=== PATIENT | female | born 1935 | race Caucasian/White ===

== ENCOUNTER 2022-04-12 04:53 | Emergency (ER) | payer MEDICARE, SELFPAY ==
[2022-04-12 04:54] VITALS: BMI 25.5
[2022-04-12 04:58] VITALS: BP 143/74; PULSE 97; RESP 21; TEMP 36.7; O2SAT 95
--- NOTE | 2022-04-12 04:58 | ECG_ITS ---
Test Date: 2022-04-12 Pat Name: Crys Thurston Department: Room: Gender: Female Licensed Massage Therapist: : 1935 Requested By: García Romero Order Number: [id number] Trice MD: Renée Kaur M.D. Measurements Intervals [place] Rate: 94 P: 115 NE: 219 QRS: 93 QRSD: 156 T: 72 QT: 403 QTc: 506 Interpretive Statements ELECTRONIC VENTRICULAR PACEMAKER ABNORMAL RHYTHM ECG No previous ECG available for comparison Electronically Signed On 04-13-2022 12:04:26 MANAGER INFORMATION by Renée Kaur M.D. [id number] f
--- NOTE | 2022-04-12 05:11 | XRR_ITS ---
PROCEDURE INFORMATION: Exam: XR Chest Exam date and time: 04/12/2022 5:27 AM Age: 86 years old Clinical indication: Pain; Cough; Chest pressure; Prior surgery; Surgery date: 6+ months; Surgery type: Pacemaker; Additional info: Cough cp TECHNIQUE: Imaging protocol: Radiologic exam of the chest. Views: 1 view. COMPARISON: No relevant prior studies available. FINDINGS: Lungs: Normal lung volumes. Minimal left lower lobe platelike atelectasis is seen. Right upper lobe and right mid to lower lung zone peripheral 1-4 mm calcified granulomas are seen. No confluent interstitial or airspace opacities. Pleural spaces: No pleural effusion. No pneumothorax. Heart/Mediastinum: Normal heart size. 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 There is a mildly tortuous thoracic aorta. Midline trachea. Bones/joints: No acute abnormalities. Mild shoulder degenerative changes are seen. Soft tissues: Multiple external densities are seen overlying the chest, limiting assessment. XR/XR chest 1V portable 10094 IMPRESSION: No confluent infiltrates in the lungs.
[2022-04-12 05:19] LABS: Basophils % 0.4 %; Eosinophils # 0.2 10^3/uL (0.0-0.8); Eosinophils % 2.7 %; Hematocrit 33.1 % (37.0-47.0); Hemoglobin 10.4 g/dL (11.5-15.3); Lymphocytes # 1.8 10^3/uL (0.8-4.8); Lymphocytes % 24.9 %; Mean Corpuscular HGB Conc 31.4 g/dL (30.0-36.0); Mean Corpuscular Hemoglobin 32.6 pg (28.0-34.0); Mean Corpuscular Volume 103.8 fl (81-99); Mean Platelet Volume 10.3 fL (7.4-10.4); Monocytes # 0.5 10^3/uL (0.2-0.9); Monocytes % 6.7 %; Neutrophils # 4.77 10^3/uL (1.8-7.7); Neutrophils % 64.9 %; Nucleated Red Blood Cells % 0 %; Platelet Count 270 10^3/cmm (130-400); Red Blood Count 3.19 10^6/uL (4.1-5.3); Red Cell Distribution Width 14.7 % (12.1-15.1); White Blood Count 7.4 10^3/uL (4.0-10.0)
[2022-04-12 05:26] LABS: INR 1.18 (0.8-1.2); Partial Thromboplastin Time 29.8 SECONDS (23.9-36.7)
[2022-04-12 05:35] LABS: Troponin(5th) Baseline 36 ng/L (0-10)
--- NOTE | 2022-04-12 05:38 | ED_ITS ---
Documented by User: García Burden, 04/12/22 05:54 HPI - Chest Pain General: Chief Complaint: Chest Pain Stated Complaint: chest pressure Time Seen by Provider: 04/12/22 04:56 Source: patient and EMS History of Present Illness: 86-year-old female presenting by air ambulance. The chief complaint for the call was chest discomfort. This discomfort had resolved by the time EMS arrived. She was given nitroglycerin anyway. She complains of a cough for several days. No fever. No increased feet swelling. No vomiting or diarrhea. She was evaluated for an elevated troponin at [facility] couple of weeks ago. It is unclear why it was chosen to come to our facility, as she has not been here prior. She is a poor historian. MD complaint: chest discomfort Pertinent past history: other Onset (ago): hour(s) Timing of current episode: episodic and now resolved Prior episodes: Yes Onset: during rest and awoke with symptoms Pain location: substernal Relieving factors: other Exacerbating factors: nothing Associated symptoms: Reports dyspnea (Mild); Deny abdominal pain, diaphoresis, fever(s), leg edema, nausea, syncope or vom iting Treatment prior to arrival: nitroglycerin and oxygen Review of Systems Const: Denies: fever(s) or diaphoresis ENMT: Denies: throat pain Card: Reports: chest pain; Denies: syncope Resp: Reports: dyspnea (Mild) and non-productive cough GI: Denies: abdominal pain, nausea or vomiting Neuro: Reports: numbness in extremities ( I feel numb all over ); Denies: headache(s) Physical Exam Const: COMMON NORMALS: no acute distress GENERAL APPEARANCE: cooperative and frail appearing; not ill appearing HENMT: COMMON NORMALS: normocephalic, atraumatic and Normal external nose present HEAD & SCALP: normocephalic and atraumatic FACE & SINUS: normal facial exam and face symmetric NOSE: Normal external nose present Eye: COMMON NORMALS: Equal, round and reactive pupils present and EOMs intact bilaterally PUPIL: Yes Equal, round and reactive pupils present Neck/C-Spine: GENERAL: Yes trachea midline Chest: CHEST: Yes Symmetrical chest wall rise Resp: COMMON NORMALS: normal respiratory effort, No retractions, No use of accessory muscles and clear to auscultation bilaterally AUSCULTATION: clear to auscultation bilaterally Cardio: COMMON NORMALS: regular rate and regular rhythm RATE: regular rate RHYTHM: regular rhythm GI: COMMON NORMALS: Normal to inspection, nondistended, normoactive bowel sounds present Extremity: COMMON NORMALS: no pedal edema Neuro: FIDELINA COMA SCALE: document GCS findings F[place] coma scale eye opening: Spontaneous [place] coma scale verbal response: Orientated [place] coma scale motor response: Obey commands F[place] coma scale total score: 15 CRANIAL NERVES: Yes CN normal except as noted SPEECH: speech normal SENSORY EXAM: Yes extremities (intact grossly) MOTOR EXAM: Normal motor muscle tone present throughout Psych: COMMON NORMALS: cooperative and speech normal SPEECH: Yes normal speech Skin: COMMON NORMALS: no rashes or lesions noted GENERAL SKIN EXAM: no rashes or lesions noted Course Vital Signs: Vital signs: Vital Signs Temperature 98.1 F 04/12/22 04:58 Pulse Rate 89 04/12/22 10:00 Respiratory Rate 16 04/12/22 10:00 Blood Pressure 143/71 04/12/22 10:00 Pulse Oximetry 93 04/12/22 10:00 Oxygen Delivery Me thod 04/12/22 10:00 MDM - Chest Pain Medical Decision Making 86-year-old with cough, chest discomfort. She has been evaluated at other hospitals evidently. She is kind of a poor historian in terms of what has happened in the past, but can relate her symptoms currently which have essentially resolved. Her CBC is not remarkable. Chest x-ray shows a tiny right-sided pleural effusion but is otherwise nonacute. Further laboratory work-up is pending. She will be checked out to Dr. Rice at shift change. Lab Data : 04/12/22 05:02 04/12/22 05:02 Radiology Impressions Chest X-Ray 04/12/22 05:11 IMPRESSION: No confluent infiltrates in the lungs. Laboratory Results WBC 7.4 10^3/uL (4.0-10.0) 04/12/22 05:02 RBC 3.19 10^6/uL (4.1-5.3) L 04/12/22 05:02 Hgb 10.4 g/dL (11.5-15.3) L 04/12/22 05:02 Hct 33.1 % (37.0-47.0) L 04/12/22 05:02 MCV 103.8 fl (81-99) H 04/12/22 05:02 MCH 32.6 pg (28.0-34.0) 04/12/22 05:02 MCHC 31.4 g/dL (30.0-36.0) 04/12/22 05:02 RDW 14.7 % (12.1-15.1) 04/12/22 05:02 Plt Count 270 10^3/cmm (130-400) 04/12/22 05:02 MPV 10.3 fL (7.4-10.4) 04/12/22 05:02 Neut % (Auto) 64.9 % 04/12/22 05:02 Lymph % (Auto) 24.9 % 04/12/22 05:02 [place] % (Auto) 6.7 % 04/12/22 05:02 Eos % (Auto) 2.7 % 04/12/22 05:02 Baso % (Auto) 0.4 % 04/12/22 05:02 Neut # (Auto) 4.77 10^3/uL (1.8-7.7) 04/12/22 05:02 Lymph # (Auto) 1.8 10^3/uL (0.8-4.8) 04/12/22 05:02 [place] # (Auto) 0.5 10^3/uL (0.2-0.9) 04/12/22 05:02 Eos # (Auto) 0.2 10^3/uL (0.0-0.8) 04/12/22 05:02 Baso # (Auto) 0.0 10^3/uL (0.0-0.1) 04/12/22 05:02 Nucleated RBC % (auto) 0 % 04/12/22 05:02 Nucleated RBCs # 0.0 /100WBC 04/12/22 05:02 PT 15.30 SECONDS (12.1-14.9) H 04/12/22 05:02 INR 1.18 (0.8-1.2) 04/12/22 05:02 APTT 29.8 SECONDS (23.9-36.7) 04/12/22 05:02 Sodium 137 mmol/L (136-145) 04/12/22 05:02 Potassium 3.6 mmol/L (3.5-5.1) 04/12/22 05:02 Chloride 103 mmol/L (98-107) 04/12/22 05:02 Carbon Dioxide 23 mmol/L (22-29) 04/12/22 05:02 Anion Gap 14.6 (5-19) 04/12/22 05:02 BUN 10 mg/dL (8-23) 04/12/22 05:02 Creatinine 0.5 mg/dL (0.5-0.9) 04/12/22 05:02 GFR Calculation Not Reportable 04/12/22 05:02 Glucose 113 mg/dL (65-115) 04/12/22 05:02 Calculated Osmolality 284 mOsm/kg (285-295) L 04/12/22 05:02 Calcium 8.2 mg/dL (8.5-10.5) L 04/12/22 05:02 Total Bilirubin 0.2 mg/dL (0.15-1.2) 04/12/22 05:02 AST 20 U/L (0-32) 04/12/22 05:02 ALT 16 U/L (0-33) 04/12/22 05:02 Alkaline Phosphatase 106 U/L (35-105) H 04/12/22 05:02 Creatine Kinase 27 U/L (26-192) 04/12/22 05:02 Troponin T Baseline 36 ng/L (0-10) H 04/12/22 05:02 Troponin T 120 Minute 37.17 ng/L (0-10) H 04/12/22 06:58 Delta Troponin T 1.17 ABS# (0-10) 04/12/22 06:58 NT-Pro-B Natriuret Pep 750 pg/mL (0-450) H 04/12/22 05:02 Total Protein 5.7 g/dL (6.6-8.7) L 04/12/22 05:02 Albumin 2.9 g/dL (3.5-5.2) L 04/12/22 05:02 Globulin 2.8 g/dL (1.3-4.6) 04/12/22 05:02 Urine Color Yellow (Yellow) 04/12/22 06:11 Urine Appearance Clear (CLEAR) 04/12/22 06:11 Urine pH 5 (5-7) 04/12/22 06:11 Ur Specific [place] 1.010 (1.005-1.030) 04/12/22 06:11 Urine Protein Neg (Negative) 04/12/22 06:11 Urine Glucose (UA) Norm (Normal) 04/12/22 06:11 Urine Ketones Negative (Negative) 04/12/22 06:11 Urine Blood 2+ (Negative) H 04/12/22 06:11 Urine Nitrate Negative (Negative) 04/12/22 06:11 Urine Bilirubin Neg (Negative) 04/12/22 06:11 Urine Urobilinogen Norm mg/dL (Negative) 04/12/22 06:11 Ur Leukocyte Esterase Negative (Negative) 04/12/22 06:11 Urine RBC None /hpf (0-2) 04/12/22 06:11 Urine WBC None /hpf (0-5) 04/12/22 06:11 Ur Squamous Epith Cells 80-100 /hpf (0-5) H 04/12/22 06:11 Amorphous Sediment Not Reportable 04/12/22 06:11 Urine Bacteria None /hpf (NONE) 04/12/22 06:11 Influenza Type A Ag negative (Negative) 04/12/22 05:18 Influenza Type B Ag negative (Negative) 04/12/22 05:18 SARS-CoV-2 Ag (Rapid) negative (Negative) 04/12/22 05:18 Discharge Plan Discharge Patient Disposition: Home Clinical Impression: Atypical chest pain Condition: Stable Prescriptions: New isosorbide mononitrate 30 mg tablet extended release 24 hr 30 mg PO DAILY Qty: 30 0RF pantoprazole 40 mg tablet,delayed release (DR/EC) 40 mg PO BID 14 Days Qty: 74 0RF Rx Instructions: Twice daily for 2 weeks then decrease to once daily. Discontinued omeprazole magnesium [Prilosec OTC] 20 mg Tablet,Delayed Release (Dr/Ec) 20 mg PO QAM No Action promethazine-DM 6.25-15 mg/5 mL Syrup 7.5 ml PO Q6H PRN (Reason: Cough) Aspir-81 81 mg Tablet,Delayed Release (Dr/Ec) 81 mg PO BEDTIME triamcinolone acetonide 0.1 % cream 1 applic TOPICAL BID Rx Instructions: to groin area iron 325 mg (65 mg iron) Tablet 325 mg PO BEDTIME nystatin 100,000 unit/gram cream 1 applic TOPICAL BID Rx Instructions: to groin area bilberry 100 mg Capsule 100 mg PO BEDTIME Lasix 20 mg Tablet 20 mg PO DAILY PRN (Reason: Edema) Vitamin D3 25 mcg (1,000 unit) Capsule 25 mcg PO BEDTIME Eliquis 2.5 mg Tablet 2.5 mg PO BID Discharge Orders: Discharge ED (Routine); Ordered 04/12/22 Ordered By: Rome Rice Discharge Diet: Usual diet Discharge Activity: Limit activity as instructed Activity Restrictions/Additional Instructions: Continue Eliquis and aspirin. Start isosorbide mononitrate once daily. Case management make arrangements for you to follow-up with cardiology as an outpatient. Sign Out Sign Out Data: Patient Sign Out occurred on 04/12/22 at 08:31. Patient's care was discussed, and care was transferred from to Rome Rice DO. Coding Level of Care Code ED Academic Advising Director for Chg Fwd Exam Comprehensive Documented by User: Rome Rice DO 04/12/22 13:16 HPI - Chest Pain General: Chief Complaint: Chest Pain Stated Complaint: chest pressure Time Seen by Provider: 04/12/22 04:56 Physical Exam Neuro: FIDELINA COMA SCALE: document GCS findings [place] coma scale total score: 15 Course Vital Signs: Vital signs: Vital Signs Temperature 98.1 F 04/12/22 04:58 Pulse Rate 89 04/12/22 10:00 Respiratory Rate 16 04/12/22 10:00 Blood Pressure 143/71 04/12/22 10:00 Pulse Oximetry 93 04/12/22 10:00 Oxygen Delivery Me thod 04/12/22 10:00 MDM - Chest Pain Medical Decision Making 86-year-old with cough, chest discomfort. She has been evaluated at other hospitals evidently. She is kind of a poor historian in terms of what has happened in the past, but can relate her symptoms currently which have essentially resolved. Her CBC is not remarkable. Chest x-ray shows a tiny right-sided pleural effusion but is otherwise nonacute. Further laboratory work-up is pending. She will be checked out to Dr. Rice at shift change. Second troponin is negative patient has no further symptoms. EKG shows paced rhythm we will have her add isosorbide mononitrate 30 mg once daily continue aspirin daily and Eliquis. No pneumonia pneumonia no suggestion of PE no pneumothorax. Recommend at this time medical management and monitoring refer back to cardiology to see if they wish to pursue with a any stress testing. We did also change her from omeprazole to pantoprazole. Medical Records I reviewed the patient's medical records. Lab Data I reviewed the patient's lab results. : 04/12/22 05:02 04/12/22 05:02 Radiology Impressions Chest X-Ray 04/12/22 05:11 IMPRESSION: No confluent infiltrates in the lungs. Laboratory Results WBC 7.4 10^3/uL (4.0-10.0) 04/12/22 05:02 RBC 3.19 10^6/uL (4.1-5.3) L 04/12/22 05:02 Hgb 10.4 g/dL (11.5-15.3) L 04/12/22 05:02 Hct 33.1 % (37.0-47.0) L 04/12/22 05:02 MCV 103.8 fl (81-99) H 04/12/22 05:02 MCH 32.6 pg (28.0-34.0) 04/12/22 05:02 MCHC 31.4 g/dL (30.0-36.0) 04/12/22 05:02 RDW 14.7 % (12.1-15.1) 04/12/22 05:02 Plt Count 270 10^3/cmm (130-400) 04/12/22 05:02 MPV 10.3 fL (7.4-10.4) 04/12/22 05:02 Neut % (Auto) 64.9 % 04/12/22 05:02 Lymph % (Auto) 24.9 % 04/12/22 05:02 [place] % (Auto) 6.7 % 04/12/22 05:02 Eos % (Auto) 2.7 % 04/12/22 05:02 Baso % (Auto) 0.4 % 04/12/22 05:02 Neut # (Auto) 4.77 10^3/uL (1.8-7.7) 04/12/22 05:02 Lymph # (Auto) 1.8 10^3/uL (0.8-4.8) 04/12/22 05:02 [place] # (Auto) 0.5 10^3/uL (0.2-0.9) 04/12/22 05:02 Eos # (Auto) 0.2 10^3/uL (0.0-0.8) 04/12/22 05:02 Baso # (Auto) 0.0 10^3/uL (0.0-0.1) 04/12/22 05:02 Nucleated RBC % (auto) 0 % 04/12/22 05:02 Nucleated RBCs # 0.0 /100WBC 04/12/22 05:02 PT 15.30 SECONDS (12.1-14.9) H 04/12/22 05:02 INR 1.18 (0.8-1.2) 04/12/22 05:02 APTT 29.8 SECONDS (23.9-36.7) 04/12/22 05:02 Sodium 137 mmol/L (136-145) 04/12/22 05:02 Potassium 3.6 mmol/L (3.5-5.1) 04/12/22 05:02 Chloride 103 mmol/L (98-107) 04/12/22 05:02 Carbon Dioxide 23 mmol/L (22-29) 04/12/22 05:02 Anion Gap 14.6 (5-19) 04/12/22 05:02 BUN 10 mg/dL (8-23) 04/12/22 05:02 Creatinine 0.5 mg/dL (0.5-0.9) 04/12/22 05:02 GFR Calculation Not Reportable 04/12/22 05:02 Glucose 113 mg/dL (65-115) 04/12/22 05:02 Calculated Osmolality 284 mOsm/kg (285-295) L 04/12/22 05:02 Calcium 8.2 mg/dL (8.5-10.5) L 04/12/22 05:02 Total Bilirubin 0.2 mg/dL (0.15-1.2) 04/12/22 05:02 AST 20 U/L (0-32) 04/12/22 05:02 ALT 16 U/L (0-33) 04/12/22 05:02 Alkaline Phosphatase 106 U/L (35-105) H 04/12/22 05:02 Creatine Kinase 27 U/L (26-192) 04/12/22 05:02 Troponin T Baseline 36 ng/L (0-10) H 04/12/22 05:02 Troponin T 120 Minute 37.17 ng/L (0-10) H 04/12/22 06:58 Delta Troponin T 1.17 ABS# (0-10) 04/12/22 06:58 NT-Pro-B Natriuret Pep 750 pg/mL (0-450) H 04/12/22 05:02 Total Protein 5.7 g/dL (6.6-8.7) L 04/12/22 05:02 Albumin 2.9 g/dL (3.5-5.2) L 04/12/22 05:02 Globulin 2.8 g/dL (1.3-4.6) 04/12/22 05:02 Urine Color Yellow (Yellow) 04/12/22 06:11 Urine Appearance Clear (CLEAR) 04/12/22 06:11 Urine pH 5 (5-7) 04/12/22 06:11 Ur Specific [place] 1.010 (1.005-1.030) 04/12/22 06:11 Urine Protein Neg (Negative) 04/12/22 06:11 Urine Glucose (UA) Norm (Normal) 04/12/22 06:11 Urine Ketones Negative (Negative) 04/12/22 06:11 Urine Blood 2+ (Negative) H 04/12/22 06:11 Urine Nitrate Negative (Negative) 04/12/22 06:11 Urine Bilirubin Neg (Negative) 04/12/22 06:11 Urine Urobilinogen Norm mg/dL (Negative) 04/12/22 06:11 Ur Leukocyte Esterase Negative (Negative) 04/12/22 06:11 Urine RBC None /hpf (0-2) 04/12/22 06:11 Urine WBC None /hpf (0-5) 04/12/22 06:11 Ur Squamous Epith Cells 80-100 /hpf (0-5) H 04/12/22 06:11 Amorphous Sediment Not Reportable 04/12/22 06:11 Urine Bacteria None /hpf (NONE) 04/12/22 06:11 Influenza Type A Ag negative (Negative) 04/12/22 05:18 Influenza Type B Ag negative (Negative) 04/12/22 05:18 SARS-CoV-2 Ag (Rapid) negative (Negative) 04/12/22 05:18 Discharge Plan Discharge Patient Disposition: Home Clinical Impression: Atypical chest pain Condition: Stable Prescriptions: New isosorbide mononitrate 30 mg tablet extended release 24 hr 30 mg PO DAILY Qty: 30 0RF pantoprazole 40 mg tablet,delayed release (DR/EC) 40 mg PO BID 14 Days Qty: 74 0RF Rx Instructions: Twice daily for 2 weeks then decrease to once daily. Discontinued omeprazole magnesium [Prilosec OTC] 20 mg Tablet,Delayed Release (Dr/Ec) 20 mg PO QAM No Action promethazine-DM 6.25-15 mg/5 mL Syrup 7.5 ml PO Q6H PRN (Reason: Cough) Aspir-81 81 mg Tablet,Delayed Release (Dr/Ec) 81 mg PO BEDTIME triamcinolone acetonide 0.1 % cream 1 applic TOPICAL BID Rx Instructions: to groin area iron 325 mg (65 mg iron) Tablet 325 mg PO BEDTIME nystatin 100,000 unit/gram cream 1 applic TOPICAL BID Rx Instructions: to groin area bilberry 100 mg Capsule 100 mg PO BEDTIME Lasix 20 mg Tablet 20 mg PO DAILY PRN (Reason: Edema) Vitamin D3 25 mcg (1,000 unit) Capsule 25 mcg PO BEDTIME Eliquis 2.5 mg Tablet 2.5 mg PO BID Discharge Orders: Discharge ED (Routine); Ordered 04/12/22 Ordered By: Rome Rice Discharge Diet: Usual diet Discharge Activity: Limit activity as instructed Activity Restrictions/Additional Instructions: Continue Eliquis and aspirin. Start isosorbide mononitrate once daily. Case management make arrangements for you to follow-up with cardiology as an outpatie nt. Sign Out Sign Out Data: Patient Sign Out occurred on 04/12/22 at 08:31. Patient's care was discussed, and care was transferred from to Rome Rcie DO. Coding Level of Care Code ED Academic Advising Director for [place] Fwd Exam Comprehensive
[2022-04-12 05:45] LABS: Alanine Aminotransferase 16 U/L (0-33); Albumin Level 2.9 g/dL (3.5-5.2); Alkaline Phosphatase 106 U/L (35-105); Blood Urea Nitrogen 10 mg/dL (8-23); Calcium 8.2 mg/dL (8.5-10.5); Carbon Dioxide 23 mmol/L (22-29); Chloride 103 mmol/L (98-107); Creatine Phosphokinase 27 U/L (26-192); Creatinine Clr Calc Pharmacy 53.0196; Globulin 2.8 g/dL (1.3-4.6); Glucose 113 mg/dL (65-115); NT Pro B Type Natriuretic Pept 750 pg/mL (0-450); Osmolality Calculated 284 mOsm/kg (285-295); Sodium 137 mmol/L (136-145); Total Bilirubin 0.2 mg/dL (0.15-1.2); Total Protein 5.7 g/dL (6.6-8.7)
[2022-04-12 05:46] LABS: Anion Gap 14.6 (5-19); Aspartate Amino Transferase 20 U/L (0-32); Potassium 3.6 mmol/L (3.5-5.1)
[2022-04-12 05:52] LABS: Influenza A by IFA negative (Negative); Influenza B by IFA negative (Negative); SARS Covid-2 Antigen negative (Negative)
[2022-04-12 06:13] VITALS: BP 142/79; PULSE 95; RESP 25; O2SAT 97
[2022-04-12 06:22] LABS: Bilirubin Urine Neg (Negative); Blood Urine 2+ (Negative); Glucose Urine UA Norm (Normal); Ketones Urine Negative (Negative); Leukocyte Esterase Urine Negative (Negative); Nitrate Urine Negative (Negative); Protein Urine Neg (Negative); Urine Appearance Clear (CLEAR); Urine Color Yellow (Yellow); Urobilinogen Urine Norm (Negative); pH Urine 5 (5-7)
[2022-04-12 06:23] LABS: Add Urine Microscopic? YES
[2022-04-12 06:24] LABS: Add Urine Culture? No; Squamous Epithelial Cell Urine 80-100 /hpf (0-5)
--- NOTE | 2022-04-12 07:14 | ECG_ITS ---
[facility] Test Date: 2022-04-12 Pat Name: Crys Thurston Department: Room: Gender: Female Director Of Dietary: : 1935 Requested By: García Romero Order Number: [id number] Trice MD: Eldon Peterson M.D. Measurements Intervals [place] Rate: 88 P: 78 IA: 205 QRS: 35 QRSD: 159 T: 70 QT: 412 QTc: 500 Interpretive Statements ELECTRONIC VENTRICULAR PACEMAKER ABNORMAL RHYTHM ECG Compared to ECG 04/12/2022 04:58:56 No significant changes Electronically Signed On 04-13-2022 21:04:22 TOOL POLISHING MACHINE OPERATOR by Eldon Peterson M.D. [id number]
[2022-04-12 07:21] LABS: Troponin 5 2HR 37.17 ng/L (0-10)
--- NOTE | 2022-04-12 07:21 | PC.PHAR ---
pts daughter verified pts medications-states the pts amlodipine 10mg hs is on hold states on hold since 04/01/22-states the pt had an iron infusion at [facility] on 03/31/22-pts daughter states the pt is only taking the medications entered-
[2022-04-12 07:24] LABS: Troponin 5 2HR Delta 1.17 ABS# (0-10)
[2022-04-12 08:00] VITALS: BP 140/79; PULSE 90; RESP 16; O2SAT 94
[2022-04-12 10:00] VITALS: BP 143/71; PULSE 89; RESP 16; O2SAT 93
== END 2022-04-12 10:00 | disposition home or self-care (01) ==
PROVIDERS: Emergency Medicine; Emergency Provider Family Medicine
DX: R07.89 Other chest pain (principal); R05.9 Cough, unspecified; Z79.82 Long term (current) use of aspirin; Z79.01 Long term (current) use of anticoagulants
CPT/HCPCS: 71045; 80053; 81001; 82550; 83880; 84484; 85025; 85610; 85730; 87426; 87804; 93005; 99285